=== PATIENT | male | born 1955 | race Caucasian/White ===

== ENCOUNTER 2022-02-23 05:50 | Day surgery (SDC) | payer MEDICARE ==
[~2022-02-23] VITALS: Ht 177.8 cm; Wt 84.1 kg
[2022-02-23] MEDS ORDERED: MULTI VITAMIN1 EACH PO (06:07)
[2022-02-23] MEDS ORDERED: CLARITIN10 MG PO (06:07)
[2022-02-23] MEDS ORDERED: LEVOFLOXACIN500 MG PO (10:37)
[2022-02-23] MEDS ORDERED: OXYCODONE HCL5 MG PO (10:41)
[2022-02-23] MEDS ORDERED: FLOMAX0.4 MG PO (16:32)
--- NOTE | 2022-02-24 11:38 | OR ---
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 NAMES OF PROCEDURES: 1. Diagnostic cystoscopy. 2. Urethral dilation using [place] sounds from 20-Haitian to 30-Haitian. 3. Transurethral resection of the prostate. ANESTHESIA: General. ESTIMATED BLOOD LOSS: 25 mL. COMPLICATIONS: None. SPECIMENS: Transurethrally resected prostate chips sent to pathology for evaluation. DRAINS: A 22-Haitian three-way Mack catheter, connected to continuous bladder irrigation. INDICATIONS FOR PROCEDURE: Aung is a very pleasant 66-year-old gentleman with a history of BPH with lower urinary tract symptoms. He had been managed with Flomax for some time now. His symptoms continued to progress, so he agreed to undergo diagnostic cystoscopy earlier this year. Cystoscopy revealed moderate to severe trilobar prostatic hyperplasia with an actively obstructing median bar along with bladder wall trabeculation. After a discussion of the risks and benefits of the procedure, the patient has elected to undergo transurethral resection of the prostate for definitive management of his BPH symptoms. OPERATIVE FINDINGS: Electronically Signed By: CRISTAL BERMEO MD 02/24/22 1138 PATIENT NAME: LINSEY OROZCO OPERATIVE REPORT DATE OF : 57 REPORT #: [id number] PHYSICIAN: CRISTAL BERMEO MD PCP: Pro Lemos DO REPORT IS CONFIDENTIAL AND NOT TO BE RELEASED WITHOUT AUTHORIZATION [facility] [address], [place] [address] Signed 1. Digital rectal examination reveals a 35 g gland that is soft, smooth and symmetric with no focal nodules. 2. Diagnostic cystoscopy reveals no evidence of any suspicious masses, lesions, or stones. Bilateral ureteral orifices are in their normal anatomic location. However, initially they were difficult to see due to the large median lobe present within the bladder. Also, noted is moderate to severe lateral lobe hypertrophy with approximately 1.5 cm from bladder neck to verumontanum. There was no evidence of any urethral stricture or stenosis. 3. The patient's urethral meatus was dilated using [place] sounds from 20-Haitian to 30-Haitian without incident. 4. The patient's large median lobe was resected 1st using a 24-Haitian bipolar loop. All the while, I had good visualization of the bilateral ureteral orifices. I then resected both the left and right lateral lobe of the prostate down to the level of the verumontanum as per protocol. At the end of the procedure, I re-evaluated the bilateral ureteral orifices and there was no evidence of any damage to the UOs after resection. 5. A 22-Haitian three-way Mack catheter was inserted into the patient's bladder and connected to continuous bladder irrigation. DESCRIPTION OF PROCEDURE: After informed consent was obtained, the patient was taken back to the operating room. He was transferred [facility] the [facility] to the operating room table, where general anesthesia was induced. He was placed in the dorsal lithotomy position and his genitalia were prepped and draped in the standard sterile fashion. A digital rectal examination was then performed. Please see above findings. Using a 30-degree lens on a 22.5-Haitian introducer, rigid cystoscope was inserted through his urethra and into the bladder under direct visualization. Panendoscopic views of the bladder were then obtained. Please see above findings. The cystoscope was then removed and the patient's urethral meatus was dilated from 18-Haitian to 38-Haitian using Chava sounds to prevent any surgery related urethral stricture. A 26-Haitian sheath was then inserted into the patient's urethra using a visual obturator. Prior to this, 60 mL of lubrication was injected into the urethra again to help prevent future urethral stenosis related to the TURP. With the 26-Haitian sheath in proper position, I then removed the visual obturator and added the resectoscope with a 24-Haitian bipolar loop. I first resected the large median lobe of the prostate. There was a good deal of bleeding with each resection using the loop. This did add some minor difficulty to the procedure. Following the middle lobe, I resected the left lateral lobe as far down as I could towards the capsule. The same was performed on the right lateral lobe of the prostate. All the while, adequate hemostasis was achieved and maintained via the bipolar loop. Towards the end of procedure, I did switch out the loop for the button to smooth the prostatic urethra out and for additional cauterization. Again, the resection was performed down to the level of the verumontanum. A Viviana syringe was used to irrigate chips from the bladder multiple times throughout the procedure. By the end of the procedure, all the prostate chips had Electronically Signed By: CRISTAL BERMEO MD 02/24/22 1138 PATIENT NAME: LINSEY OROZCO OPERATIVE REPORT DATE OF : 57 REPORT #: [id number] PHYSICIAN: CRISTAL BERMEO MD PCP: Pro Lemos DO REPORT IS CONFIDENTIAL AND NOT TO BE RELEASED WITHOUT AUTHORIZATION [facility] [address], [place] [address] Signed been successfully removed from the bladder and hemostasis was achieved. A new channel had been created from bladder neck to verumontanum. The resectoscope was removed, leaving the sheath in place. I inserted a Sensor wire through the sheath and into the patient's bladder. The sheath was then removed fully intact. Over the wire, I passed a 22-Haitian three-way Mack catheter into the patient's bladder. The catheter passed easily and a Sensor wire was then removed. 30 mL of water was instilled into the catheter balloon. The Mack catheter was then manually irrigated to confirm adequate placement. I then connected the catheter to continuous bladder irrigation and the procedure was then terminated. The patient tolerated the procedure well without any complication. He will now be transferred to the postanesthesia care unit in stable condition. DISPOSITION: I discussed the details of today's procedure with the patient's and answered all of her questions. He does have a history of mild constipation, so I made it clear with his today that he will need to begin a stool softener to avoid any straining to produce future bowel movements. He will be sent home today with Levaquin 500 mg p.o. daily for a total of 7 days along with oxycodone 5 mg one tablet p.o. q.6 hours p.r.n. pain, dispense #20. He will be scheduled return to clinic this February 26, to undergo a voiding trial with our Urology nurse. MD RODOLFO Fernandez/ABILIO /[id number] Copies: ~ Electronically Signed By: CRISTAL BERMEO MD 02/24/22 1138 PATIENT NAME: LINSEY OROZCO Gail OPERATIVE REPORT DATE OF : 57 REPORT #: [id number] PHYSICIAN: CRISTAL BERMEO MD PCP: Pro Lemos DO REPORT IS CONFIDENTIAL AND NOT TO BE RELEASED WITHOUT AUTHORIZATION
--- NOTE | 2022-02-26 10:30 | PATH ---
[facility] [address], [place] [address] Signed SPECIMEN(S): A PROSTATE CHIPS SPECIMEN SOURCE: A. PROSTATE CHIPS CLINICAL HISTORY: Pre: BPH with LUTS. Post: TURP. FINAL PATHOLOGIC DIAGNOSIS: Prostate chips, transurethral resection: - Fragments of benign prostatic tissue demonstrating glandular and stromal hyperplasia, consistent with features seen in benign prostatic hyperplasia. - Chronic inflammation. TWK:sandra:[id number] MICROSCOPIC EXAMINATION: Histologic sections of all submitted blocks are examined by light microscopy. These findings, together with the gross examination, support the pathologic diagnosis. GROSS DESCRIPTION: The specimen, labeled "DP, prostate chips," is received in formalin and consists of irregular shaped, pink-menchaca, rubbery tissue fragments that aggregate measure 7.0 x 4.5 x 1.0 cm. The specimen weight 14 g. Specimen is entirely submitted in cassettes (A1-A8). JS (under the direct supervision of a pathologist) The Gross Description was prepared using a voice recognition system. The report was reviewed for accuracy; however, sound-alike word errors, addition and/or deletions may occur. If there is any question about this report, please contact Client Services. PERFORMING LABORATORY: The technical component was performed by [email or web address], [address] [place] [id number] (CLIA# [id number]). The professional interpretation was performed by [facility], [facility], [address] [place] [address] (CLIA#: [id number]). Diagnostician: Naeem Hall MD Pathologist Electronically Signed 02/26/2022 PATIENT NAME: LINSEY OROZCO PATHOLOGY DATE OF : 57 REPORT #: [id number] PHYSICIAN: [facility] PCP: Pro Lemos DO REPORT IS CONFIDENTIAL AND NOT TO BE RELEASED WITHOUT AUTHORIZATION [address] [place], [place] [address] Signed Copies: ~ PATIENT NAME: LINSEY OROZCO PATHOLOGY DATE OF : 57 REPORT #: [id number] PHYSICIAN: [facility] PCP: Pro Lemos DO REPORT IS CONFIDENTIAL AND NOT TO BE RELEASED WITHOUT AUTHORIZATION
== END 2022-02-24 11:10 | disposition home or self-care (01) ==
LOC: DS 05:50 → MS 10:05 → DS 02-24 11:10
PROVIDERS: ATTEND Urology
PROC: 0VT08ZZ Resection of Prostate, Via Natural or Artificial Opening Endoscopic (ICD-10-PCS; principal; 2022-02-23 07:30)
DX: N40.1 Benign prostatic hyperplasia with lower urinary tract symptoms (principal); R39.14 Feeling of incomplete bladder emptying
CPT/HCPCS: 00914; A9270; C1769; J0131; J0690; J0696; J1100; J2405; J2704; J3010; J7121